=== PATIENT | female | born 1990 | race African-American/Black ===

== ENCOUNTER 2023-07-25 21:20 | Emergency (ER) | payer OTHER ==
--- NOTE | 2023-07-25 22:01 | ED Physician Documentation ---
History of Present Illness - Stated complaint Stated Complaint: ABD PX - Chief complaint Chief Complaint: Abd Pain - History obtained from History obtained from: Patient - Additonal information Additional information: 33yF with pmh Ovarian cyst presents with right lower quadrant cramping and foul urine for the past few days with associated nausea, hot flashes and malaise. Patient said that she had unprotected sex with a new partner and would like to be tested for STIs. Also tried anal sex for the first time and found it painful and requests vaginal and rectal exam. LMP 07/31. Past surgical history cholecystectomy in 2008 and endometriosis [place] robotic surgery in 2021. PD PAST MEDICAL HISTORY - Past Medical History Past Medical History: No Cardiovascular: None Respiratory: None Neuro: None Endocrine/Autoimmune: None GI: None PRENATAL TEACHER: None : None HEENT: None Psych: None Musculoskeletal: None Derm: None - Past Surgical History Past Surgical History: Yes - Allergies Allergies/Adverse Reactions: Allergies Allergy/AdvReac Type Severity Reaction Status Date / Time No Known Drug Allergies Allergy Verified 07/25/23 21:29 - Social History Does the pt smoke?: No Smoking Status: Never smoker Does the pt drink ETOH?: No Does the pt have substance abuse?: No - Immunizations Immunizations are current?: Yes - POLST Patient has POLST: No PD ED PE NORMAL - Vitals Vital signs reviewed: Yes - General General: Alert and oriented X 3, No acute distress, Well developed/nourished - HEENT HEENT: Atraumatic, PERRL, EOMI, Moist mucous membranes, Pharynx benign - Neck Neck: Supple, no meningeal sign - Cardiac Cardiac: RRR - Respiratory Respiratory: No respiratory distress, Clear bilaterally - Abdomen Abdomen: Non tender, Non distended - Female Female : Leasing Consultant present (RN), Other (Yellow 2mm raised lesion at 11 o clock position on cervix. otherwise normal cervix, closed os. no cmt, no adnexal tenderness) - Rectal Rectal: Other (normal ELVIA) - Back Back: No CVA TTP - Derm Derm: Normal color, Warm and dry Results - Vitals Vitals: Vital Signs - 24 hr 07/25/23 07/25/23 07/25/23 21:29 21:32 23:48 Temperature 36.8 C 36.8 C Heart Rate 76 76 79 Respiratory 16 16 18 Rate Blood Pressure 108/79 108/79 110/83 H O2 Saturation 100 100 98 Oxygen O2 Source Room air - Labs Labs: Laboratory Tests 07/25/23 07/25/23 07/25/23 21:50 22:07 22:07 WBC 8.1 RBC 4.64 Hgb 12.0 Hct 36.4 L MCV 78.4 L MCH 25.9 L MCHC 33.0 RDW 15.0 Plt Count 224 MPV 9.0 Neut # (Auto) 3.8 Lymph # (Auto) 3.4 [place] # (Auto) 0.7 Eos # (Auto) 0.1 Baso # (Auto) 0.1 Absolute Nucleated RBC 0.00 Nucleated RBC % 0.0 Sodium 135 Potassium 3.9 Chloride 102 Carbon Dioxide 30 Anion Gap 3.0 L BUN 12 Creatinine 0.7 Estimated GFR (MDRD) 118 Glucose 89 Calcium 9.4 Total Bilirubin 0.4 AST 21 ALT 21 Alkaline Phosphatase 59 Total Protein 7.1 Albumin 4.2 Globulin 2.9 Albumin/Globulin Ratio 1.4 Lipase < 10 L Urine Color YELLOW Urine Clarity SL. CLOUDY Urine pH 7.0 Ur Specific [place] 1.020 Urine Protein NEGATIVE Urine Glucose (UA) NEGATIVE Urine Ketones NEGATIVE Urine Occult Blood NEGATIVE Urine Nitrite NEGATIVE Urine Bilirubin NEGATIVE Urine Urobilinogen 0.2 (NORMAL) Ur Leukocyte Esterase NEGATIVE Urine RBC None Seen Urine WBC 0-3 Ur Squamous Epith Cells FEW Squamous Amorphous Sediment Moderate Urine Bacteria None Seen Ur Microscopic Review INDICATED Urine Culture Comments NOT INDICATED Urine HCG, Qual NEGATIVE PD Medical Decision Making - ED course ED course: 33-year-old woman presents with multiple medical issues including abdominal pain, foul-smelling urine, concern for STI, nausea, hot flashes, rectal pain after first-time anal sex. exam was performed and revealed large amount of whitish discharge and cervical lesion. Lab work including CBC, abdominal panel, urinalysis, hCG all normal. Ultrasound performed and showed 2 cysts on R ovary. Plan to follow-up outpatient with PCM. Return precautions given. Departure - Departure Disposition: 01 Home, Self Care Clinical Impression: Abdominal pain, Nausea Condition: Stable Instructions: Abdominal Pain Comments: You were seen in the emergency department for Medical evaluation. You can view your test results on the patient health portal in 3-5 days. You appear to have fungal overgrowth on vaginal exam. You can take probiotics over the counter (e.g., saccharomyces cerevisiae) and eat probiotic foods like hungarian yogurt and kimchee. If it starts to become itchy or bothersome you can get fluconazole troches over the counter to treat it. Your pelvic exam revealed a yellow lesion on your cervix and some redness and ir ritation. You should have a repeat exam with an obstetrics gynecology physician and they may need to test it further. Your ultrasound showed 2 cysts on the right ovary. Please follow-up with obstetrics gynecology physician and return to the emergency department if you have any new or worsening symptoms or other concerns. Forms: PCP List
[2023-07-25 22:03] LABS: BILIRUBIN,URINE NEGATIVE (NEGATIVE); GLUCOSE, URINE (UA) NEGATIVE (NEGATIVE); KETONES,URINE (UA) NEGATIVE (NEGATIVE); LEUKOCYTE ESTERASE, URINE NEGATIVE (NEGATIVE); NITRITE,URINE NEGATIVE (NEGATIVE); OCCULT BLOOD,URINE NEGATIVE (NEGATIVE); PROTEIN,URINE NEGATIVE (NEGATIVE); UROBILINOGEN,URINE 0.2 (NORMAL) E.U./dL (NORMAL)
[2023-07-25 22:06] LABS: CLARITY,URINE SL. CLOUDY (CLEAR); HCG UR QUAL NEGATIVE
[2023-07-25 22:14] LABS: BASOPHILS # (AUTO) 0.1 10^3/uL (0.0-0.1); BASOPHILS % (AUTO) 0.9 %; EOSINOPHILS # (AUTO) 0.1 10^3/uL (0.0-0.7); EOSINOPHILS % (AUTO) 1.7 %; HCT - HEMATOCRIT 36.4 % (37.0-47.0); LYMPHOCYTES # (AUTO) 3.4 10^3/uL (1.5-3.5); LYMPHOCYTES % (AUTO) 42.3 %; MEAN CORPUSCULAR HEMOGLOBIN 25.9 pg (27.0-31.0); MEAN CORPUSCULAR VOLUME 78.4 fL (81.0-99.0); MONOCYTES # (AUTO) 0.7 10^3/uL (0.0-1.0); MONOCYTES % (AUTO) 8.3 %; NEUTROPHILS # (AUTO) 3.8 10^3/uL (1.5-6.6); NEUTROPHILS % (AUTO) 46.7 %; PLT - PLATELET COUNT 224 10^3/uL (130-450); RED BLOOD COUNT 4.64 10^6/uL (4.20-5.40); WHITE BLOOD COUNT 8.1 x10^3/uL (4.8-10.8)
[2023-07-25 22:18] LABS: AMORPHOUS SEDIMENT,UR Moderate /LPF; BACTERIA,URINE None Seen /HPF (None Seen); RBC,URINE None Seen /HPF (0-5); SQUAMOUS EPITHELIAL CELL,UR FEW Squamous (<= Few); WBC,URINE 0-3 /HPF (0-5)
[2023-07-25 22:32] LABS: ALBUMIN 4.2 g/dL (3.2-5.5); ALBUMIN/GLOBULIN RATIO 1.4 (1.0-2.2); ALKALINE PHOSPHATASE 59 IU/L (42-121); ALT ALANINE AMINOTRANSFERASE 21 IU/L (10-60); AST ASPARTATE AMINOTRANSFERASE 21 IU/L (10-42); BILIRUBIN,TOTAL 0.4 mg/dL (0.2-1.0); BUN - BLOOD UREA NITROGEN 12 mg/dL (6-20); CALCIUM 9.4 mg/dL (8.5-10.3); CARBON DIOXIDE - CO2 30 mmol/L (21-32); CHLORIDE 102 mmol/L (101-111); CREATININE 0.7 mg/dL (0.6-1.3); GFR - MDRD 118 (>89); GLUCOSE 89 mg/dL (74-104); POTASSIUM 3.9 mmol/L (3.5-4.5); SODIUM 135 mmol/L (135-145); TOTAL PROTEIN 7.1 g/dL (6.4-8.9)
[2023-07-25 22:46] LABS: LIPASE < 10 U/L (11-82)
[2023-07-25 23:52] VITALS: BP 110/83; O2SAT 98
--- NOTE | 2023-07-26 00:50 | Ultrasound Report ---
PROCEDURE: Pelvic w/Doppler Complete INDICATIONS: RLQ pain TECHNIQUE: Real-time scanning was performed of the pelvic organs, with image documentation. Doppler interrogati on was performed of the ovaries bilaterally. COMPARISON: None. FINDINGS: Uterus: Uterus is anteverted and normal in size at 10.5 x 5.3 x 6.9 cm. The myometrium is slightly heterogeneous secondary to an intramural fibroid in the anterior mid body measuring 0.9 cm. There is an exophytic mass measuring 1.3 cm arising from the right anterior uterus.. The endometrium measures 12 mm in combined thickness. Uterine vascularity within normal limits. Ovaries: The right ovary measures 4.3 x 3.1 x 3.5 cm, with a calculated ovarian volume of 23.9 cc. The left ovary measures 4.2 x 1.8 x 4.2 cm, with a calculated ovarian volume of 17 cc. Appropriate b lood flow to the ovaries with Doppler interrogation. There is a dominant follicle in the right ovar y. Normal left ovarian follicular echotexture. No adnexal masses are seen. No cystic lesions measuri ng greater than 3 cm. Other: No pathologic free abdominal or pelvic fluid. Trace right lower quadrant fluid, nonspecific. IMPRESSION: Slightly heterogeneous uterus secondary to small fibroids. Nonspecific fluid in the right lower quadrant. There is a dominant follicle on the right ovary measuring up to 2.3 cm. This may be the etiology of r ight lower quadrant fluid, though other nonpathologic etiologies should be considered. Reviewed by: Zoraida Walls MD on 07/26/2023 12:49 AM PDT Approved by: Zoraida Walls MD on 07/26/2023 12:49 AM PDT Station ID: [id number]
[2023-07-26 01:04] LABS: HIV RAPID SCREEN NEGATIVE (NEGATIVE)
[2023-07-26 03:59] LABS: CHLAMYDIA TRACHOMATIS DNA NEGATIVE (NEGATIVE); NEISSERIA GONORRHOEAE DNA NEGATIVE (NEGATIVE); TRICHOMONAS VAGINALIS DNA NEGATIVE (NEGATIVE)
[2023-07-27 09:10] LABS: HIV SCREEN 4TH GENERATION Non Reactive (Non Reactive)
== END 2023-07-26 00:46 | disposition home or self-care (01) ==
LOC: ED 21:20
DX: R10.31 Right lower quadrant pain (principal); R11.0 Nausea; N83.201 Unspecified ovarian cyst, right side
CPT/HCPCS: 36415; 80053; 81001; 81003; 81025; 83690; 85025; 86703; 87086; 87389; 87491; 87536; 87591; 87661; 93975; 99284

== ENCOUNTER 2023-10-13 15:10 | Outpatient (CLI) | payer OTHER ==
[2023-10-14 00:38] LABS: BACTERIAL VAGINOSIS DNA NEGATIVE (NEGATIVE); CANDIDA GLABRATA DNA NEGATIVE (NEGATIVE); CANDIDA GROUP DNA NEGATIVE (NEGATIVE); CANDIDA KRUSEI DNA NEGATIVE (NEGATIVE); TRICHOMONAS VAGINALIS DNA NEGATIVE (NEGATIVE)
== END 2023-10-13 16:06 | disposition home or self-care (01) ==
LOC: LAB.N 15:10
PROVIDERS: ATTEND Physician Assistant
DX: N89.8 Other specified noninflammatory disorders of vagina (principal); Z77.120 Contact with and (suspected) exposure to mold (toxic)
CPT/HCPCS: 36415; 81514; 81599